=== PATIENT | male | born 1935 | race Asian ===

== ENCOUNTER 2018-04-19 18:59 | Emergency (ER) | payer MEDICARE, OTHER ==
[~2018-04-19] VITALS: Ht 180.3 cm; Wt 59.1 kg
[2018-04-19 19:13] VITALS: BP 119/61; PULSE 68; RESP 18; Ht 180.3 cm; Wt 59.1 kg
--- NOTE | 2018-04-19 21:30 | ERD ---
ER Documentation Chief Complaint Chief Complaint suture removal right eyebrow HPI This is an 82-year-old male who presents to the emergency department, brought in by family members for wound check to his right eyebrow with 6 simple interrupted sutures. No fever and chills. Family member stated that patient has history of dementia. ROS All systems reviewed and are negative except as per history of present illness. Allergies Allergies: Coded Allergies: Unknown: Unable to obtain (Unverified , 04/14/18) PMhx/Soc Medical and Surgical Hx: pt denies Medical Hx, pt denies Surgical Hx Anesthesia Reaction: No Hx Neurological Disorder: No Hx Respiratory Disorders: No Hx Cardiac Disorders: No Hx Psychiatric Problems: No Hx Miscellaneous Medical Probl: No Hx Alcohol Use: No Hx Substance Use: No Hx Tobacco Use: No Smoking Status: Never smoker Physical Exam Vitals Vital Signs Date Temp Pulse Resp B/P (MAP) Pulse Ox O2 O2 Flow FiO2 Time Delivery Rate 04/19/18 98.5 68 18 119/61 96 19:13 (80) Physical Exam Const: No acute distress Head: Atraumatic Eyes: Normal Conjunctiva. Right eyebrow has a 6 simple interrupted sutures. No lesions. No active bleeding. ENT: Normal External Ears, Nose and Mouth. Neck: Full range of motion. No meningismus. Resp: Clear to auscultation bilaterally Cardio: Regular rate and rhythm, no murmurs Abd: Soft, non tender, non distended. Normal bowel sounds Skin: No petechiae or rashes Back: No midline or flank tenderness Ext: No cyanosis, or edema Neur: Awake and alert. Psych: Normal Mood and Affect Procedures/MDM After I decided to discharge patient, family member decided to get a second opinion from another provider here in the emergency department. My supervising physician, Dr. Lori Heaton evaluated the patient. Diagnostic tests: Clinical exam. Treatment: Re-evaluation: Differential diagnosis I have low suspicion for dehiscence. Final diagnosis: Wound check. Prescription: Not applicable. Follow-up with PCP in the next 24-48 hours. Come back in 2 days for suture removal. Come back here in the emergency department for any new symptoms or any worsening symptoms. All questions and concerns were answered. Patient and family members verbalized understanding and agreed with plan of care. Hemodynamically stable on discharge. Departure Diagnosis: Primary Impression: Visit for wound check Condition: Stable Additional Instructions: Follow-up with PCP in the next 24-48 hours. Come back in 2 days for suture removal. Come back here in the emergency department for any new symptoms or any worsening symptoms. OSVALDO SOSA Apr 19, 2018 21:30
== END 2018-04-19 23:05 | disposition home or self-care (01) ==
LOC: FTE 18:59
DX: Z48.01 Encounter for change or removal of surgical wound dressing (principal)
CPT/HCPCS: 99281

== ENCOUNTER 2018-04-23 13:23 | Emergency (ER) | END 2018-04-23 14:06 | disposition home or self-care (01) ==